=== PATIENT | male | born 1955 | race Caucasian/White ===

== ENCOUNTER 2019-10-20 07:13 | Emergency (ER) | payer MEDICAID ==
[~2019-10-20] VITALS: Ht 182.9 cm; Wt 78.0 kg
[2019-10-20] MEDS ORDERED: ALBUTEROL 0.5%, 20ML ONE (07:22)
[2019-10-20] MEDS ORDERED: BUDESONIDE 0.5 MG/2 ML INHA ONE (07:22)
--- NOTE | 2019-10-20 07:25 | NUR ---
UNABLE TO GET BP WITH PT SITTING UPRIGHT ON EDGE OF GURNEY, AWAITING BREATHING TX. PT ANXIOUS AND PULLED CUFF OFF ARM. RT AT BEDSIDE SETTING UP FOR CONTINUOUS BREATHING TX
[2019-10-20] MEDS ORDERED: DEXAMETHASONE 4 MG TABLET PO ONE (07:30)
[2019-10-20] MEDS ORDERED: ALBUTEROL 0.5%, 20ML NPPBCONT ONE (07:30)
[2019-10-20] MEDS ORDERED: DEXAMETHASONE 4 MG TABLET ONE (07:32)
--- NOTE | 2019-10-20 07:52 | NUR ---
PT REMAINS ON CONTINUOUS, NOW LYING BACK IN GURNEY WITH EYES CLOSED.
[2019-10-20 07:53] VITALS: BP_DIAS 8
--- NOTE | 2019-10-20 08:45 | NUR ---
EXPRESSIVE THERAPIST: PER DR VEIRA, PT REFUSED CHEST XRAY.
[2019-10-20] MEDS ORDERED: BUDESONIDE 0.5 MG/2 ML INHA NPPB SCH (09:00)
[2019-10-20 09:18] VITALS: BP_SYST 75
--- NOTE | 2019-10-20 09:18 | NUR ---
WOB IMPROVED, GOOD LUNG SOUNDS WITH MILD EXPIRATORY WHEEZES. SPEAKING IN FULL SENTENCES. GIVEN DISCHARGE INSTRUCTIONS AND AMBULATED TO DISCHARGE WINDOW, STEADY GAIT
== END 2019-10-20 09:21 | disposition home or self-care (01) ==
LOC: ED 08:02
DX: J45.41 Moderate persistent asthma with (acute) exacerbation (principal); Z87.891 Personal history of nicotine dependence
CPT/HCPCS: 93005; 94644; 99283; J7611; J7626